=== PATIENT | female | born 1985 | race Caucasian/White ===

== ENCOUNTER 2021-09-15 21:16 | Inpatient (IN) | payer SELFPAY ==
[2021-09-15] MEDS ORDERED: Sodium Chloride 0.9% 10 ML Syringe FLUSH PRN (21:45)
[2021-09-15] MEDS ORDERED: Acetaminophen 325 MG Tab PO ONE (22:00)
[2021-09-15] MEDS ORDERED: Sodium Chloride 0.9% 1,000 ML IV ONE ×2 (22:00→22:53)
[2021-09-15] MEDS ORDERED: cefTRIAXone 2 GM in Sodium Chloride 0.9% 100 ML IV ONE (22:44)
[2021-09-16] MEDS: Sodium Chloride 0.9% 1,000 ML IV SCH ×4 (00:33→22:35)
[2021-09-16] MEDS ORDERED: Ondansetron 4 MG/2 ML SDV IVPUSH PRN (02:38)
[2021-09-16] MEDS: Acetaminophen 325 MG Tab PO PRN ×4 (04:24→22:38)
[2021-09-16] MEDS: Ketorolac 15 MG/ML SDV IVPUSH PRN ×3 (06:24→19:02)
[2021-09-16] MEDS: Nicotine 14 MG/24 Hr Patch TRDERM SCH (08:41)
[2021-09-16] MEDS: Enoxaparin 40 MG/0.4 ML Syringe SUBCUT SCH (08:41)
[2021-09-16] MEDS ORDERED: HYDROmorphone 0.5 MG/0.5 ML Syringe IVPUSH ONE ×2 (19:35→19:37)
[2021-09-16] MEDS: cefTRIAXone 2 GM in Sodium Chloride 0.9% 100 ML IV SCH (20:01)
[2021-09-16] MEDS: Levofloxacin/Dextrose 5%-Water 750 MG in Premix Bag 1 BAG IV SCH (20:38)
[2021-09-16] MEDS ORDERED: Magnesium Hydroxide 400 MG/5 ML Susp 30 ML Cup PO PRN (20:42)
[2021-09-17] MEDS: Ketorolac 15 MG/ML SDV IVPUSH PRN ×3 (03:36→18:57)
[2021-09-17] MEDS ORDERED: HYDROmorphone 0.5 MG/0.5 ML Syringe IVPUSH ONE (03:48)
[2021-09-17] MEDS: Sodium Chloride 0.9% 1,000 ML IV SCH ×3 (03:59→16:47)
[2021-09-17] MEDS: oxyCODONE 5 MG Tab PO PRN (05:53)
[2021-09-17] MEDS: Psyllium Husk Powder Sugar Free 5.85 GM Packet PO SCH ×3 (06:00→16:16)
[2021-09-17] MEDS: Enoxaparin 40 MG/0.4 ML Syringe SUBCUT SCH (08:01)
[2021-09-17] MEDS: Nicotine 14 MG/24 Hr Patch TRDERM SCH (08:01)
[2021-09-17] MEDS ORDERED: Acetaminophen 325 MG Tab PO ONE (10:59)
[2021-09-17] MEDS ORDERED: Sodium Chloride 0.9% 10 ML Syringe FLUSH ONE (12:38)
[2021-09-17] MEDS ORDERED: Iopamidol 612 MG/ML 100 ML Bottle IVPUSH ONE ×2 (12:38→13:12)
[2021-09-17] MEDS ORDERED: Sodium Chloride 0.9% 100 ML IV SCH ×2 (12:45→13:15)
[2021-09-17] MEDS ORDERED: Sodium Chloride 0.9% 10 ML Syringe FLUSH PRN (13:12)
[2021-09-17] MEDS ORDERED: Magnesium Citrate Solution 296 ML Bottle PO ONE (13:50)
[2021-09-17] MEDS: cefTRIAXone 2 GM in Sodium Chloride 0.9% 100 ML IV SCH ×2 (19:57→22:44)
[2021-09-17] MEDS: Levofloxacin/Dextrose 5%-Water 750 MG in Premix Bag 1 BAG IV SCH (20:41)
[2021-09-17] MEDS: Temazepam 15 MG Cap PO PRN (22:35)
[2021-09-18] MEDS: Sodium Chloride 0.9% 1,000 ML IV SCH (00:36)
[2021-09-18] MEDS: Ketorolac 15 MG/ML SDV IVPUSH PRN (03:52)
[2021-09-18] MEDS: Nicotine 14 MG/24 Hr Patch TRDERM SCH (09:08)
[2021-09-18] MEDS: Enoxaparin 40 MG/0.4 ML Syringe SUBCUT SCH (09:09)
[2021-09-18] MEDS: oxyCODONE 5 MG Tab PO PRN ×2 (17:12→20:35)
[2021-09-18] MEDS: cefTRIAXone 2 GM in Sodium Chloride 0.9% 100 ML IV SCH (21:24)
[2021-09-18] MEDS: Temazepam 15 MG Cap PO PRN (21:25)
[2021-09-18] MEDS: Levofloxacin/Dextrose 5%-Water 750 MG in Premix Bag 1 BAG IV SCH (21:55)
[2021-09-19] MEDS: oxyCODONE 5 MG Tab PO PRN (03:25)
[2021-09-19] MEDS: Nicotine 14 MG/24 Hr Patch TRDERM SCH (08:18)
[2021-09-19] MEDS: Enoxaparin 40 MG/0.4 ML Syringe SUBCUT SCH (08:18)
== END 2021-09-19 10:15 | disposition home or self-care (01) | DRG 872 ==
LOC: JD.ED 21:16 → JD.MS 23:14
PROVIDERS: ADMIT Internal Medicine; ATTEND Internal Medicine
DX: A41.51 Sepsis due to Escherichia coli [E. coli] (principal); N10 Acute pyelonephritis; N30.01 Acute cystitis with hematuria; F17.200 Nicotine dependence, unspecified, uncomplicated; Z20.822 Contact with and (suspected) exposure to COVID-19
CPT/HCPCS: 36415; 74177; 74177-26; 76705; 76705-26; 80053; 81001; 83605; 83735; 85025; 86140; 87040; 87086; 87088; 87186; 99284-25; 99285; A9270-GY; J0696; J1170; J1650; J1885; J1956; J3490; J7030; Q9967; U0002